=== PATIENT | male | born 1940 | race Caucasian/White ===

== ENCOUNTER 2017-11-26 11:08 | Outpatient (CLI) | payer MEDICARE, BC ==
[2017-11-26 18:17] LABS: BILIRUBIN,URINE NEGATIVE (NEGATIVE); GLUCOSE, URINE (UA) NEGATIVE (NEGATIVE); KETONES,URINE (UA) NEGATIVE (NEGATIVE); LEUKOCYTE ESTERASE, URINE NEGATIVE (NEGATIVE); NITRITE,URINE NEGATIVE (NEGATIVE); OCCULT BLOOD,URINE NEGATIVE (NEGATIVE); PROTEIN,URINE NEGATIVE (NEGATIVE); UROBILINOGEN,URINE 0.2 (NORMAL) E.U./dL (NORMAL)
[2017-11-26 18:23] LABS: CLARITY,URINE CLEAR (CLEAR)
== END 2017-11-26 11:09 | disposition home or self-care (01) ==
LOC: LAB.R 11:08
PROVIDERS: ATTEND Nurse Practitioner Family
DX: R30.0 Dysuria (principal)
CPT/HCPCS: 81001; 81003; 87086

== ENCOUNTER 2018-01-22 13:11 | Outpatient (CLI) | payer MEDICARE, BC ==
[2018-01-22 13:44] LABS: BILIRUBIN,URINE NEGATIVE (NEGATIVE); GLUCOSE, URINE (UA) NEGATIVE (NEGATIVE); KETONES,URINE (UA) TRACE mg/dL (NEGATIVE); LEUKOCYTE ESTERASE, URINE TRACE (NEGATIVE); NITRITE,URINE NEGATIVE (NEGATIVE); OCCULT BLOOD,URINE NEGATIVE (NEGATIVE); PROTEIN,URINE NEGATIVE (NEGATIVE); UROBILINOGEN,URINE 1 (NORMAL) E.U./dL (NORMAL)
[2018-01-22 13:53] LABS: CLARITY,URINE CLEAR (CLEAR)
[2018-01-22 13:54] LABS: BACTERIA,URINE Rare /HPF (None Seen); SQUAMOUS EPITHELIAL CELL,UR RARE Squamous (<= Few)
== END 2018-01-22 13:12 | disposition home or self-care (01) ==
LOC: LAB 13:11
PROVIDERS: ATTEND Urology
DX: R39.9 Unspecified symptoms and signs involving the genitourinary system (principal)
CPT/HCPCS: 81001; 87086

== ENCOUNTER 2018-07-22 14:25 | Observation (INO) | payer MEDICARE, BC ==
--- NOTE | 2018-07-22 14:41 | ED Physician Documentation ---
PD HPI SYNCOPE - Stated complaint Stated Complaint: NEAR SYNCOPE - Chief complaint Chief Complaint: Neuro - History obtained from History obtained from: Patient, Family - History of Present Illness Witnessed: Witnessed Timing - onset: Today Duration: Seconds Preceding symptoms: Vision changes, Light headed, Generalized weakness Associated symptoms: Incontinant of urine. No: Seizure, Headache, Vision changes Contributing factors: Exertion Injury occurred: None Similar symptoms before: Has not had sx before Recently seen: Not recently seen - Additional information Additional information: 78-year-old male with a history of advancing dementia was out with his partner today having lunch in [place] and he was in his usual state of health. He came out of the restaurant with his partner they were walking down the street when the patient suddenly dropped to his knees and became less responsive. His partner put him into the car to bring him up to the hospital he is responding but less than his usual. He did not have complete syncope he did not injure himself. He has some urinary incontinence and some troubles with his memory and his partner is administering his medications and fluids. His partner states that he has decreased his fluids slightly because of his urinary incontinence. Review of Systems Constitutional: denies: Fever Eyes: denies: Decreased vision Ears: denies: Ear pain Nose: denies: Congestion Throat: denies: Sore throat Cardiac: denies: Chest pain / pressure, Palpitations Respiratory: denies: Dyspnea, Cough GI: denies: Abdominal Pain, Nausea, Vomiting : reports: Incontinent. denies: Dysuria, Frequency Skin: denies: Rash Musculoskeletal: denies: Neck pain, Back pain, Extremity pain PD PAST MEDICAL HISTORY - Present Medications Home Medications: Ambulatory Orders Medication Instructions Recorded Confirmed Atorvastatin [Lipitor] 10 mg PO DAILY 07/22/18 07/22/18 Citalopram [CeleXA] 20 mg PO DAILY 07/22/18 07/22/18 Losartan [Cozaar] 50 mg PO DAILY 07/22/18 07/22/18 No Known Home Medications 07/22/18 07/22/18 - Allergies Allergies/Adverse Reactions: Allergies Allergy/AdvReac Type Severity Reaction Status Date / Time Sulfa (Sulfonamide Allergy Unknown Verified 07/22/18 14:37 Antibiotics) PD ED PE NORMAL - Vitals Vital signs reviewed: Yes (hypotensive ) - General General: No acute distress, Well developed/nourished, Other (blank stare clinching teeth and hands) - HEENT HEENT: Atraumatic, PERRL, EOMI, Other (cerumen impaction bilaterally ) - Neck Neck: Supple, no meningeal sign, No bony TTP - Cardiac Cardiac: RRR, No murmur - Respiratory Respiratory: No respiratory distress, Clear bilaterally - Abdomen Abdomen: Soft, Non tender - Back Back: No CVA TTP, No spinal TTP - Derm Derm: Normal color, Warm and dry, No rash - Extremities Extremities: No deformity, No edema - Neuro Neuro: rn nursery 2-12 intact, No motor deficit, No sensory deficit, Normal speech Eye Opening: Spontaneous Motor: Obeys Commands Verbal: Confused GCS Score: 14 - Psych Psych: Normal mood, Normal affect Results - Vitals Vitals: Vital Signs - 24 hr 07/22/18 07/22/18 07/22/18 14:30 14:58 15:33 Temperature 36.0 C L Heart Rate 61 66 74 Respiratory 19 16 21 Rate Blood Pressure 91/59 L 93/61 94/56 L O2 Saturation 100 100 100 Oxygen O2 Source Room air - EKG (time done) 1441 Rate: Rate (enter#) (63) Rhythm: NSR Intervals: RBBB Compare to prior EKG: Old EKG unavailable Computer interpretation: Agree with computer - Labs Labs: Laboratory Tests 07/22/18 07/22/18 07/22/18 14:35 14:35 14:35 WBC 6.2 RBC 4.27 L Hgb 12.8 L Hct 37.3 L MCV 87.3 MCH 29.9 MCHC 34.2 RDW 14.3 Plt Count 197 MPV 7.3 L Neut # (Auto) 3.3 Lymph # (Auto) 2.1 [place] # (Auto) 0.7 Eos # (Auto) 0.1 Baso # (Auto) 0.0 Absolute Nucleated RBC 0.00 Nucleated RBC % 0.1 Sodium 139 Potassium 3.7 Chloride 103 Carbon Dioxide 24 Anion Gap 12.0 BUN 25 H Creatinine 1.6 H Estimated GFR (MDRD) 42 L Glucose 124 H POC Whole Bld Glucose Lactic Acid Calcium 9.6 Total Bilirubin 0.8 AST 27 ALT 19 Alkaline Phosphatase 50 Troponin I < 0.04 B-Natriuretic Peptide Total Protein 6.9 Albumin 3.9 Globulin 3.0 Albumin/Globulin Ratio 1.3 Lipase 27 Urine Color Urine Clarity Urine pH Ur Specific [place] Urine Protein Urine Glucose (UA) Urine Ketones Urine Occult Blood Urine Nitrite Urine Bilirubin Urine Urobilinogen Ur Leukocyte Esterase Urine RBC Urine WBC Ur Squamous Epith Cells Urine Bacteria Urine Mucus Ur Microscopic Review Urine Culture Comments 07/22/18 07/22/18 07/22/18 14:35 14:35 14:35 WBC RBC Hgb Hct MCV MCH MCHC RDW Plt Count MPV Neut # (Auto) Lymph # (Auto) [place] # (Auto) Eos # (Auto) Baso # (Auto) Absolute Nucleated RBC Nucleated RBC % Sodium Potassium Chloride Carbon Dioxide Anion Gap BUN Creatinine Estimated GFR (MDRD) Glucose POC Whole Bld Glucose 111 H Lactic Acid 3.5 H* Calcium Total Bilirubin AST ALT Alkaline Phosphatase Troponin I B-Natriuretic Peptide 11 Total Protein Albumin Globulin Albumin/Globulin Ratio Lipase Urine Color Urine Clarity Urine pH Ur Specific [place] Urine Protein Urine Glucose (UA) Urine Ketones Urine Occult Blood Urine Nitrite Urine Bilirubin Urine Urobilinogen Ur Leukocyte Esterase Urine RBC Urine WBC Ur Squamous Epith Cells Urine Bacteria Urine Mucus Ur Microscopic Review Urine Culture Comments 07/22/18 14:55 WBC RBC Hgb Hct MCV MCH MCHC RDW Plt Count MPV Neut # (Auto) Lymph # (Auto) [place] # (Auto) Eos # (Auto) Baso # (Auto) Absolute Nucleated RBC Nucleated RBC % Sodium Potassium Chloride Carbon Dioxide Anion Gap BUN Creatinine Estimated GFR (MDRD) Glucose POC Whole Bld Glucose Lactic Acid Calcium Total Bilirubin AST ALT Alkaline Phosphatase Troponin I B-Natriuretic Peptide Total Protein Albumin Globulin Albumin/Globulin Ratio Lipase Urine Color BROWN Urine Clarity HAZY Urine pH 5.[address] [place] 1.025 Urine Protein TRACE Urine Glucose (UA) NEGATIVE Urine Ketones NEGATIVE Urine Occult Blood TRACE-INTA Urine Nitrite POSITIVE H Urine Bilirubin NEGATIVE Urine Urobilinogen 0.2 (NORMAL) Ur Leukocyte Esterase MODERATE H Urine RBC 0-5 Urine WBC >25 H Ur Squamous Epith Cells NONE SEEN Urine Bacteria Few Urine Mucus Few Strands Ur Microscopic Review INDICATED Urine Culture Comments INDICATED - Rads (name of study) CT head without Radiology: Prelim report reviewed (Impression: Generalized age-related cortical atrophic changes without evidence of acute intracranial abnormality.), EMP read indepedently, See rad report chest Radiology: Prelim report reviewed (Impression: Hypoinflation, otherwise unremarkable single view chest.), EMP read indepedently, See rad report Procedures - IVC sono (time) 1520 Bedside IVC sono: IVC measures (cm) (1.09), IVC collapsed c insp (cm) (complete), Dehydration (est 1-2 liters deficit.) PD MEDICAL DECISION MAKING - ED course Complexity details: reviewed results, re-evaluated patient, considered differential, d/w patient, d/w family ED course: 78-year-old male with some dementia has had a near syncope and collapse today without prior warning. Here in the emergency department he has volume depletion on interrogation of the inferior vena cava as well as acute kidney injury and urinary tract infection. He is lactate is 3.5. Saline and antibiotics are begun and he is prepared for admission to the hospital. Departure - Departure Disposition: ED Place in Observation Clinical Impression: Dehydration Altered mental status Qualifiers: Altered mental status type: transient alteration of awareness Qualified Code(s): R40.4 - Transient alteration of awareness Urinary tract infection Qualifiers: Urinary tract infection type: acute cystitis Hematuria presence: without hematuria Qualified Code(s): N30.00 - Acute cystitis without hematuria
[2018-07-22 14:50] LABS: BASOPHILS % (AUTO) 0.7 %; EOSINOPHILS # (AUTO) 0.1 10^3/uL (0.0-0.7); EOSINOPHILS % (AUTO) 1.4 %; HGB - HEMOGLOBIN 12.8 g/dL (14.0-18.0); LYMPHOCYTES # (AUTO) 2.1 10^3/uL (1.5-3.5); LYMPHOCYTES % (AUTO) 33.9 %; MEAN CORPUSCULAR HEMOGLOBIN 29.9 pg (27.0-31.0); MEAN CORPUSCULAR HGB CONC 34.2 g/dL (32.0-36.0); MEAN CORPUSCULAR VOLUME 87.3 fL (80.0-94.0); MEAN PLATELET VOLUME 7.3 fL (7.4-11.4); MONOCYTES # (AUTO) 0.7 10^3/uL (0.0-1.0); MONOCYTES % (AUTO) 11.1 %; NEUTROPHILS # (AUTO) 3.3 10^3/uL (1.5-6.6); NEUTROPHILS % (AUTO) 52.9 %; PLT - PLATELET COUNT 197 10^3/uL (130-450); RED BLOOD COUNT 4.27 10^6/uL (4.70-6.10); RED CELL DISTRIBUTION WIDTH 14.3 % (12.0-15.0); WHITE BLOOD COUNT 6.2 x10^3/uL (4.8-10.8)
[2018-07-22 15:00] LABS: ALBUMIN 3.9 g/dL (3.2-5.5); ALBUMIN/GLOBULIN RATIO 1.3 (1.0-2.2); BILIRUBIN,TOTAL 0.8 mg/dL (0.2-1.0); CALCIUM 9.6 mg/dL (8.5-10.3); CREATININE 1.6 mg/dL (0.6-1.2); TOTAL PROTEIN 6.9 g/dL (6.7-8.2)
[2018-07-22 15:04] LABS: BILIRUBIN,URINE NEGATIVE (NEGATIVE); GLUCOSE, URINE (UA) NEGATIVE (NEGATIVE); KETONES,URINE (UA) NEGATIVE (NEGATIVE); LEUKOCYTE ESTERASE, URINE MODERATE (NEGATIVE); NITRITE,URINE POSITIVE (NEGATIVE); OCCULT BLOOD,URINE TRACE-INTA (NEGATIVE); PH,URINE 5.5 PH (5.0-7.5); PROTEIN,URINE TRACE mg/dL (NEGATIVE); UROBILINOGEN,URINE 0.2 (NORMAL) E.U./dL (NORMAL)
[2018-07-22 15:07] LABS: CLARITY,URINE HAZY (CLEAR)
[2018-07-22 15:18] LABS: RBC,URINE 0-5 /HPF (0-5)
[2018-07-22 15:19] LABS: BACTERIA,URINE Few /HPF (None Seen); MUCUS,URINE Few Strands; SQUAMOUS EPITHELIAL CELL,UR NONE SEEN (<= Few)
[2018-07-22] MEDS ORDERED: SODIUM CHLORIDE 0.9% 1,000 ML IV ONE ×2 (15:38→17:17)
[2018-07-22] MEDS ORDERED: cefTRIAXone 1 GM in SODIUM CHLORIDE 0.9% MINIBAG 100 ML IV STA (15:38)
--- NOTE | 2018-07-22 15:41 | XRAY Report ---
Reason: chest pain Procedure Date: 07/22/2018 Accession Number: [id number] / [id number] Procedure: XR - Chest 1 View X-Ray CPT Code: 14211 FULL RESULT: EXAM: CHEST RADIOGRAPHY EXAM DATE: 07/22/2018 03:15 PM. CLINICAL HISTORY: Syncopal episode. Fall. Chest pain. COMPARISON: None. TECHNIQUE: 1 view. FINDINGS: Lungs/Pleura: Hypoinflated lungs. No focal opacities evident. No pleural effusion. No pneumothorax. Mediastinum: Within exam limitations, the cardiomediastinal contour is normal. Calcified aortic arch. Other: No fractures identified. IMPRESSION: Hypoinflation, otherwise unremarkable single view chest. RADIA
--- NOTE | 2018-07-22 15:43 | CT Report ---
Reason: syncope alter LOC Procedure Date: 07/22/2018 Accession Number: [id number] / [id number] Procedure: CT - HEAD WO CPT Code: FULL RESULT: EXAM: CT HEAD EXAM DATE: 07/22/2018 03:20 PM. CLINICAL HISTORY: Loss of consciousness. Fall. COMPARISON: None. TECHNIQUE: Multiaxial CT images were obtained from the foramen magnum to the vertex. Reformats: Sagittal and coronal. IV contrast: None. In accordance with CT protocol optimization, one or more of the following dose reduction techniques were utilized for this exam: automated exposure control, adjustment of mA and/or KV based on patient size, or use of iterative reconstructive technique. FINDINGS: Parenchyma: No intraparenchymal hemorrhage. No evidence of mass, midline shift, or CT findings of acute infarction. Nunez-white differentiation is distinct. Mild chronic microangiopathic white matter changes are evident. Extraaxial Spaces: Normal for age. No subdural or epidural collections identified. Ventricles: The ventricles and cortical sulci are prominent, consistent with age-related tissue loss. Sinuses and orbits: Opacified anterior left ethmoid air cell, otherwise the imaged paranasal sinuses, orbits, and mastoids show no significant abnormality. Bones: No evidence of fracture or calvarial defect. Other: None. IMPRESSION: Generalized age-related cortical atrophic changes without evidence of acute intracranial abnormality. RADIA
[2018-07-22] MEDS ORDERED: ONDANSETRON ODT 4 MG TABLET TL PRN (16:23)
[2018-07-22] MEDS ORDERED: SODIUM CHLORIDE FLUSH 0.9% 10 ML SYRINGE IVP PRN (16:23)
--- NOTE | 2018-07-22 16:39 | HISTORY & PHYSICAL EXAMINATION ---
Chief Complaint - Chief Complaint Chief Complaint: Sudden collapse with associated weakness History of Present Illness - Admitted From Admitted From:: ED - History Obtained From Records Reviewed: yes History obtained from: ED staff, patient is poor historian Exam Limitations: Yes - History of Present Illness HPI Comment/Other: 78-year-old male with a history of advancing dementia, Hypertension, hyperlipidemia, was out with his partner today having lunch in [place] and he was in his usual state of health. He came out of the restaurant with his partner they were walking down the street when the patient suddenly dropped to his knees and became less responsive. His partner put him into the car to bring him up to the hospital he is responding but less than his usual. He did not have complete syncope he did not injure himself. He has some urinary incontinence and some troubles with his memory and his partner is administering his medications and fluids. His partner states that he has decreased his fluids slightly because of his urinary incontinence. Patient's home medications consist of Celexa, losartan, atorvastatin, Aricept and clonazepam. Per patient's spouse patient was diagnosed with unspecified dementia approximately 10 years ago does not know if it is Alzheimer's dementia. However he does state that patient has had multiple falls in the past and is having intention tremors with some uncontrollable movements that he has observed and has labeled this as "anxiety" with constant twitching. Patient's partner attributes this to possible infections or when he is having an anxiety attack for which apparently he takes clonazepam and Celexa to alleviate this. Upon further examination patient is still confused however unclear of baseline dementia, CT of the head shows no acute mass-effects, ischemic insults or intracranial abnormalities, chest x-ray was unremarkable, electrolytes unremarkable, however creatinine is 1.6 unknown baseline, first set of troponin unremarkable with a BNP of 11, LFTs within normal limits, UA showed more than 25 WBCs per high-power field along with positive leukocyte Estrace/nitrate, EKG showed a right bundle branch block with a ventricular rate of 63 bpm with no pr ior old EKG to compare with. Patient's blood pressure was hypotensive with 94/56, afebrile, heart rate of 74 bpm, 100% O2 saturation room air. Patient to be admitted for further evaluation management treatment Meds/Allgy - Home Medications Home Medications: Ambulatory Orders Medication Instructions Recorded Confirmed Donepezil HCl [Aricept] 10 mg PO DAILY 05/02/19 05/02/19 Losartan [Cozaar] 25 mg PO DAILY 07/22/18 07/22/18 clonazePAM [KlonoPIN] 0.25 - 0.5 mg PO Q8H PRN 07/22/18 07/22/18 - Allergies Allergies/Adverse Reactions: Allergies Allergy/AdvReac Type Severity Reaction Status Date / Time Sulfa (Sulfonamide Allergy Unknown Verified 07/22/18 14:37 Antibiotics) Review of Systems - All Other Systems All Other Systems: reports: Reviewed and negative Prior Level of Functionality: Patient's prior functional capacity and status was with home ADLs that were performed at home Exam - Vital Signs Vital Signs: Vital Signs x48h Temp Pulse Resp BP Pulse Ox 07/22/18 15:33 74 21 94/56 L 100 07/22/18 14:58 66 16 93/61 100 07/22/18 14:30 36.0 C L 61 19 91/59 L 100 Sepsis Event Note (H) - Evaluation Possible source of Sepsis: positive: Genitourinary - Sepsis Criteria Sepsis Criteria: DESIGN CONSULTANT: altered consciousness (unrelated to primary neuro pathology), Metabolic: lactate > 2 mmol/L Conclusion/Plan - Problem List (1) Syncope and collapse Conclusion/Plan: Multifactorial etiology however strong component of possible underlying Parkinson's disease with autonomic dysfunction as patient has had dementia for approximately 10 years. Patient also on Aricept clonazepam Celexa losartan which may potentiate drug-induced hypotension/orthostatic hypotension. Will obtain orthostats, IV fluid resuscitation to continue, avoid sedative agents. ECG shows a RBBB but no suggest cardiac etiology, no seizure, post-ictal or loss of postural tone seen or observed to mandate MRI or EEG study. (2) Encephalopathy acute Conclusion/Plan: May be secondary to UTI exacerbating patient's underlying Parkinson's dementia. Will obtain blood cultures, urine cultures, and treat underlying etiologies. Most likely patient has undiagnosed Parkinson's disease with dementia and exacerbation with UTI observed. Obtain TSH, magnesium, lactic acid trending. No evidence of alcohol abuse or other metabolic causes to contribute to the acute encephalopathy. (3) Urinary tract infection Conclusion/Plan: Present on admission. UTI seen on UA, urine cultures to follow, unclear if UTI is associated with patient's acute encephalopathy and a loss of endothelial tone which can be seen in early sepsis depending on the species of organism. Patient to continue with IV Rocephin to cover empirically. Urine culture is to follow for the identification and sensitivities. Qualifiers: Urinary tract infection type: acute cystitis Hematuria presence: without hematuria Qualified Code(s): N30.00 - Acute cystitis without hematuria (4) Dementia Conclusion/Plan: Patient has had undiagnosed Parkinson's disease with associated dementia. Has had this for approximately 10 years now and was only on Aricept and Namenda in the past. Patient partner states that patient takes clonazepam and Celexa for his anxiety or uncontrolled movements that he attributes to this however I explained that this may not be anxiety and uncontrollable movements are due to his dystonias, akathisia's, and intention tremors that are related to his advanced Parkinson's disease/dementia. Will attempt to place on Low-dose Sinemet to start at 10/100 mg to improve movement disorder, Gait and balance as patient has had history of multiple falls in the past. Qualifiers: Dementia type: Parkinson's disease Dementia behavioral disturbance: without behavioral disturbance Qualified Code(s): G20 - Parkinson's disease; F02.80 - Dementia in other diseases classified elsewhere without behavioral disturbance (5) Lactic acidosis Conclusion/Plan: Patient likely has underlying UTI with a possibility that this was present on admission with the fact that he was hypotensive although I do not know if this is autonomic dysfunction versus true early sepsis with associated lactic acido sis. Blood cultures x2 were drawn as well as urine cultures to follow. Lactic acid trending every 6 hours until normalizing to continue (6) Acute renal insufficiency Conclusion/Plan: Creatinine upon presentation was 1.6 there is no prior baseline however patient was on losartan in the past and will hold this due to SHANON. Continue to perfuse kidneys, avoid nephrotoxic agents, And correct electrolyte disturbances. (7) Hyperlipidemia Conclusion/Plan: Will restart statin Qualifiers: Hyperlipidemia type: mixed hyperlipidemia Qualified Code(s): E78.2 - Mixed hyperlipidemia (8) Advanced care planning/counseling discussion Conclusion/Plan: Plan of care along with discussion of medical conditions, symptom management and support, and trajectory of illness were discussed with patient and partner. - Lab Results Fish Bones: 07/22/18 14:35 07/22/18 14:35 - Diagnostic Imaging Results Diagnostic Imaging Results: positive: Final report reviewed - EKG Results EKG Interpreted Independently: Yes EKG Comparison: Old EKG unavailable Core Measures - Anticipated LOS I expect patient to be DC'd or transferred within 96 hours.: Yes - DVT/VTE - Prophylaxis VTE/DVT Device ordered at admit?: Yes VTE/DVT Prophylaxis med ordered at admit?: Yes - Stroke - Rehab Assessment Rehab services assessment to be ordered?: No - AMI - Statin at Admit Aspirin Prescribed on Admit: No Not Ordered - Medical Reason: Not indicated
[2018-07-22 17:21] LABS: MUDS CUTOFF CONCENTRATIONS CUTOFF CONC BELOW:
[2018-07-22 17:46] LABS: AMPHETAMINE SCREEN,URINE NEGATIVE (NEGATIVE); BENZODIAZEPINES SCREEN, URINE NEGATIVE (NEGATIVE); COCAINE SCREEN URINE NEGATIVE (NEGATIVE); METHADONE SCREEN, URINE NEGATIVE (NEGATIVE); METHAMPHETAMINES SCREEN, URINE NEGATIVE (NEGATIVE); OPIATE SCREEN, URINE NEGATIVE (NEGATIVE); OXYCODONE SCREEN, URINE NEGATIVE (NEGATIVE); PROPOXYPHENE SCREEN, URINE NEGATIVE (NEGATIVE); TRICYCLIC ANTIDEPRESSANT,URINE NEGATIVE (NEGATIVE)
[2018-07-22] MEDS: SODIUM CHLORIDE 0.9% 1,000 ML IV SCH (18:13)
[2018-07-22] MEDS: SODIUM CHLORIDE FLUSH 0.9% 10 ML SYRINGE IVP SCH (18:14)
[2018-07-22] MEDS: CARBIDOPA/LEVODOPA 10 MG/100 MG TABLET PO SCH ×2 (18:21→20:58)
[2018-07-22] MEDS: HEPARIN 5,000 UNIT/ML VIAL SUBQ SCH (20:58)
[2018-07-22] MEDS: FAMOTIDINE 20 MG TABLET PO SCH (20:58)
[2018-07-22] MEDS ORDERED: MIN OIL/DIMETHICON/COCONUT OIL 92 GM TUBE TOP PRN (21:27)
[2018-07-23] MEDS: ACETAMINOPHEN 325 MG TABLET PO PRN ×2 (00:21→10:20)
[2018-07-23] MEDS: SODIUM CHLORIDE 0.9% 1,000 ML IV SCH ×2 (01:51→09:51)
[2018-07-23] MEDS: SODIUM CHLORIDE FLUSH 0.9% 10 ML SYRINGE IVP SCH ×2 (03:24→10:11)
[2018-07-23 05:35] LABS: BASOPHILS % (AUTO) 0.4 %; EOSINOPHILS % (AUTO) 0.6 %; HGB - HEMOGLOBIN 11.3 g/dL (14.0-18.0); LYMPHOCYTES # (AUTO) 1.4 10^3/uL (1.5-3.5); LYMPHOCYTES % (AUTO) 19.3 %; MEAN CORPUSCULAR HEMOGLOBIN 30.3 pg (27.0-31.0); MEAN CORPUSCULAR HGB CONC 34.4 g/dL (32.0-36.0); MEAN PLATELET VOLUME 7.4 fL (7.4-11.4); MONOCYTES # (AUTO) 0.5 10^3/uL (0.0-1.0); MONOCYTES % (AUTO) 6.8 %; NEUTROPHILS # (AUTO) 5.3 10^3/uL (1.5-6.6); NEUTROPHILS % (AUTO) 72.9 %; PLT - PLATELET COUNT 142 10^3/uL (130-450); RED BLOOD COUNT 3.72 10^6/uL (4.70-6.10); RED CELL DISTRIBUTION WIDTH 14.5 % (12.0-15.0); WHITE BLOOD COUNT 7.3 x10^3/uL (4.8-10.8)
[2018-07-23 05:49] LABS: ALBUMIN 3.1 g/dL (3.2-5.5); CALCIUM 8.6 mg/dL (8.5-10.3); CREATININE 0.8 mg/dL (0.6-1.2); PHOSPHORUS 3.5 mg/dL (2.5-4.6)
[2018-07-23] MEDS ORDERED: ATORVASTATIN 10 MG TABLET PO SCH (09:00)
[2018-07-23] MEDS ORDERED: POLYETHYLENE GLYCOL 3350 17 GM PACKET PO SCH (09:00)
[2018-07-23] MEDS ORDERED: cefTRIAXone 1 GM in SODIUM CHLORIDE 0.9% MINIBAG 100 ML IV SCH (09:00)
--- NOTE | 2018-07-23 09:24 | DISCHARGE SUMMARY ---
Discharge Summary Admit Date: 07/22/18 Discharge Date: 07/23/18 Discharging Provider: Dr. Hood Primary Care Provider: Debra Jay Code Status: Attempt Resuscitation Condition at Discharge: Good Discharge Disposition: 01 Home, Self Care - DIAGNOSES Admission Diagnoses: (1) Syncope and collapse (2) Encephalopathy acute (3) Urinary tract infection (4) Dementia (5) Lactic acidosis (6) Acute renal insufficiency (7) Hyperlipidemia (8) Advanced care planning/counseling discussion Discharge Diagnoses with Status of Each Condition: (1) Syncope and collapse, Resolved (2) Encephalopathy acute, Resolved (3) Urinary tract infection With associated dysuria, Improved stable (4) New diagnosis of Parkinson's disease with possible underlying Dementia, Stable (5) Lactic acidosis, Resolved (6) Acute renal insufficiency, Resolved (7) Hyperlipidemia, stable (8) hypertension, stable - HPI History of Present Illness: 78-year-old male with a history of advancing dementia, Hypertension, hyperlipidemia, was out with his partner today having lunch in [place] and he was in his usual state of health. He came out of the restaurant with his partner they were walking down the street when the patient suddenly dropped to his knees and became less responsive. His partner put him into the car to bring him up to the hospital he is responding but less than his usual. He did not have complete syncope he did not injure himself. He has some urinary incontinence and some troubles with his memory and his partner is administering his medications and fluids. His partner states that he has decreased his fluids slightly because of his urinary incontinence. Patient's home medications consist of Celexa, losartan, atorvastatin, Aricept and clonazepam. Per patient's spouse patient was diagnosed with unspecified dementia approximately 10 years ago does not know if it is Alzheimer's dementia. However he does state that patient has had multiple falls in the past and is having intention tremors with some uncontrollable movements that he has observed and has labeled this as "anxiety" with constant twitching. Patient's partner attributes this to possible infections or when he is having an anxiety attack for which apparently he takes clonazepam and Celexa to alleviate this. Upon further examination patient is still confused however unclear of baseline dementia, CT of the head shows no acute mass-effects, ischemic insults or intracranial abnormalities, chest x-ray was unremarkable, electrolytes unremarkable, however creatinine is 1.6 unknown baseline, first set of troponin unremarkable with a BNP of 11, LFTs within normal limits, UA showed more than 25 WBCs per high-power field along with positive leukocyte Estrace/nitrate, EKG showed a right bundle branch block with a ventricular rate of 63 bpm with no prior old EKG to compare with. Patient's blood pressure was hypotensive with 94/56, afebrile, heart rate of 74 bpm, 100% O2 saturation room air. Patient to be admitted for further evaluation management treatment - HOSPITAL COURSE Hospital Course: Patient was admitted for UTI which was attributable to his encephalopathy superimposed to his advanced dementia which by history appears to be Alzheimer's type however Parkinson's type dementia has not been excluded and in fact patient did come in with cogwheel rigidity, trapezius, frequent "falls, gait disturbance, as well as intention and resting tremors. This unfortunately has not been diagnosed in patient's past. Patient has been off the Aricept however was on Celexa, clonazepam, losartan, atorvastatin. Patient had been instructed to decrease his losartan from 100 mg to 50 mg however 100 mg had been continued as per spouse's account. Patient had a syncope and collapse that was witnessed. There was lactic acidosis seen initially along with possible early sepsis however urine culture showed no growth upon discharge, and blood cultures were pending and unclear at this point if this was a contributing factor to his lobe blood pressures however it may have been due to patient having been on losartan and being dehydrated. Patient had no other abnormalities and no cardiac underlying causes. Echocardiogram revealed an Ejection fraction was 60 to 65% with grade 1 diastolic dysfunction with no overt valvular heart disease. Orthostats were ordered as well. Physical therapy to assess due to patient's history of falls. Physical therapy assess patient and did see signs and symptoms of Parkinson's disease. Recommendations for outpatient PT were given.Patient was started on IV Rocephin empirically for his UTI. Patient was transitioned over to p.o. Keflex to continue as an outpatient. Lactic acid was 1.7 upon discharge with hemodynamic stability, afebrile with blood pressure 136/66. Neuroimaging studies were unremarkable on admission as well as chest x- ray. Patient was managed medically and with IV fluids and responded well to medical management. Patient had improved on his weakness and gait as per physical therapy. Patient to be discharged with Sinemet with PCP to follow and make referral to neurology to continue with titration of Sinemet. Patient has been given instructions on medical conditions with proper management. - ALLERGIES Allergies/Adverse Reactions: Allergies Allergy/AdvReac Type Severity Reaction Status Date / Time Sulfa (Sulfonamide Allergy Unknown Verified 07/22/18 14:37 Antibiotics) - MEDICATIONS Home Medications: Ambulatory Orders Medication Instructions Recorded Confirmed Atorvastatin Calcium 20 mg PO DAILY 07/22/18 07/23/18 Citalopram Hydrobromide 20 mg PO DAILY 07/22/18 07/23/18 [Citalopram HBr] Cyanocobalamin (Vitamin B-12) 1,000 mcg PO DAILY 07/22/18 07/23/18 [Vitamin B-12] clonazePAM [KlonoPIN] 0.25 - 0.5 mg PO Q8H PRN 07/22/18 07/22/18 Carbidopa/Levodopa 1 each PO QID #90 tablet 07/23/18 [Carbidopa-Levodopa 25-100 Tab] Cephalexin [Keflex] 1,000 mg PO BID 7 Days #28 capsule 07/23/18 Phenazopyridine [Pyridium] 100 mg PO TID 3 Days #9 tablet 07/23/18 - PHYSICAL EXAM AT DISCHARGE General Appearance: positive: No acute distress, Alert, Other (Baseline dementia) Eyes Bilateral: positive: Normal inspection, PERRL, EOMI ENT: positive: ENT inspection nml, Pharynx nml, No signs of dehydration Neck: positive: Nml inspection, Thyroid nml, No JVD, Trachea midline. negative: Thyromegaly Respiratory: positive: Chest non-tender, No respiratory distress, Breath sounds nml Cardiovascular: positive: Regular rate & rhythm, No murmur, No gallop Peripheral Pulses: positive: 2+ Abdomen: positive: Non-tender, No organomegaly, Nml bowel sounds, No distention. negative: Tenderness Back: positive: Nml inspection Skin: positive: Color nml, No rash Extremities: positive: Full ROM, Nml appearance. negative: Calf tenderness, Joint swelling Neurologic/Psychiatric: positive: Depressed mood/affect (Patient has neurocognitive deficits that are apparent.), Other (Patient with cogwheel rigidity bilaterally, resting and intention tremors noted.). negative: Sensory loss, Facial droop, Slurred/abnml speech - LABS Result Diagrams: 07/23/18 05:25 07/23/18 05:25 - DIAGNOSTIC IMAGING Diagnostic Imaging Results: Final report reviewed - SEPSIS Possible source of Sepsis: Genitourinary Sepsis Criteria: HIGH SCHOOL DIRECTOR: altered consciousness (unrelated to primary neuro pathology) - FOLLOW UP Follow Up: To follow-up with PCP in 1 to 2 weeks. Patient needs to have a neurology follow -up in 2 to 3 weeks for his Parkinson's disease. - TIME SPENT Time Spent in Discharge (Minutes): 35
[2018-07-23] MEDS: CARBIDOPA/LEVODOPA 10 MG/100 MG TABLET PO SCH ×2 (09:50→13:30)
[2018-07-23] MEDS: FAMOTIDINE 20 MG TABLET PO SCH (09:50)
[2018-07-23] MEDS: PHENAZOPYRIDINE 100 MG TABLET PO SCH ×2 (09:50→13:30)
[2018-07-23] MEDS: HEPARIN 5,000 UNIT/ML VIAL SUBQ SCH (09:50)
--- NOTE | 2018-07-23 12:29 | Discharge Plan ---
Discharge Plan Disposition: Home, Self Care Condition: Good Prescriptions: Carbidopa/Levodopa [Carbidopa-Levodopa 25-100 Tab] 1 each PO QID #90 tablet Cephalexin [Keflex] 1,000 mg PO BID 7 Days #28 capsule Phenazopyridine [Pyridium] 100 mg PO TID 3 Days #9 tablet Diet: Regular Activity Restrictions: Activity as Tolerated Shower Restrictions: No Driving Restrictions: Yes Weight Bearing: Full Weight Instruction Topics: Carbidopa Levodopa tablets, Parkinson Disease, Parkinson Disease Meds, Parkinson Disease Plan Future, Parkinson Disease [place] Emotions, UTI Additional Instructions or Follow Up instructions: You were admitted for a urinary tract infection which may have been related to your collapse and low blood pressures at the same time as it pertains to your blood pressure medications of Cozaar. You will be instructed to hold off on Cozaar until your urinary tract infection has improved or resolved. You will continue with oral antibiotics for at least 7 more days. You have been instructed to continue your other home medications. You had an echocardiogram to visualize a 4 chambers of your heart which were essentially normal. You have been instructed to increase her oral intake and fluids. You have also been instructed to ambulate with precaution as you have had a history of falls as it pertains to her Parkinson's disease and movement disorder. Please follow-up with your regular primary care provider in 1 to 2 weeks. Would also be of help if a neurologist or to manage your new medication for your Parkinson's disease. You have been instructed on bowel and bladder hygiene. You may benefit from outpatient physical therapy to improve your range of motion, gait, strength and balance as indicated by our physical therapist who saw you while hospitalized. Follow-Up Care: Outpatient Rehab - OT No Smoking: If you smoke, Please STOP! Call for help. Follow-up with: Debra Jay ARNP [Primary Care Provider] - 1 Week (Follow-up with PCP in 1 or 2 weeks.)
[2018-07-23 12:43] VITALS: BP 148/59
[2018-07-24] MEDS ORDERED: NON FORMULARY MED (Atorvastatin Calcium [Atorvastatin Calcium] 20 MG) PO SCH (09:00)
[2018-07-24] MEDS ORDERED: CYANOCOBALAMIN 500 MCG TABLET PO SCH (09:00)
== END 2018-07-23 14:02 | disposition home or self-care (01) ==
LOC: ED 14:25 → MS2 16:24
PROVIDERS: ADMIT Family Medicine; ATTEND Family Medicine
DX: R55 Syncope and collapse (principal); G93.40 Encephalopathy, unspecified; N30.00 Acute cystitis without hematuria; G20 Parkinson's disease; E87.2 Acidosis; N17.9 Acute kidney failure, unspecified; E86.0 Dehydration; F03.90 Unspecified dementia, unspecified severity, without behavioral disturbance, psychotic disturbance, mood disturbance, and anxiety; F32.9 Major depressive disorder, single episode, unspecified; E78.5 Hyperlipidemia, unspecified; I10 Essential (primary) hypertension; R32 Unspecified urinary incontinence; I45.10 Unspecified right bundle-branch block; Z91.81 History of falling
CPT/HCPCS: 36415; 51701; 70450; 71045; 80069; 81001; 83605; 83690; 83735; 83880; 84484; 85025; 87040; 87086; 93005; 93306; 96361; 96365; 96366; 96372; 97161; 99283; 99284; A6250; A9270; G0378; 80053; 80306; 81003; 84443

== ENCOUNTER 2018-08-27 12:54 | Outpatient (CLI) | payer MEDICARE, BC | END 2018-08-27 12:55 | disposition critical access hospital (66) | LOC: EMS 12:54 | PROVIDERS: ATTEND Surgery | DX: R39.89 Other symptoms and signs involving the genitourinary system (principal); R53.83 Other fatigue; S30.810A Abrasion of lower back and pelvis, initial encounter; W06.XXXA Fall from bed, initial encounter; Y92.003 Bedroom of unspecified non-institutional (private) residence as the place of occurrence of the external cause | CPT/HCPCS: A0425; A0429 ==

== ENCOUNTER 2018-08-27 13:36 | Emergency (ER) | payer MEDICARE, BC ==
[2018-08-27] MEDS ORDERED: SODIUM CHLORIDE 0.9% 1,000 ML IV ONE (13:58)
--- NOTE | 2018-08-27 14:00 | ED Physician Documentation ---
PD HPI BACK INJURY - Stated complaint Stated Complaint: UTI - History obtained from History obtained from: Family (partner/caregiver) - History of Present Illness Type of injury: Fall (78-year-old gentleman with dementia and Parkinson's. He l juani at home with his partner who is his primary caregiver. Over the last 48 hours he has decompensated and unable to walk unassisted, he is fallen several times with injuries to both elbows and his low back. This is similar to an episode he had at the beginning of July with diagnoses of lactic acidosis and UTI. At baseline he walks without implements, he sometimes requires help eating and is incontinent.) Review of Systems Unable to obtain: Dementia PD PAST MEDICAL HISTORY - Past Medical History Cardiovascular: Hypertension, High cholesterol Respiratory: None Neuro: Dementia Endocrine/Autoimmune: None GI: None : Incontinence Psych: Depression Musculoskeletal: None Derm: None - Past Surgical History Past Surgical History: Yes Ortho: Other - Present Medications Home Medications: Ambulatory Orders Medication Instructions Recorded Confirmed Atorvastatin Calcium 20 mg PO DAILY 07/22/18 07/23/18 Citalopram Hydrobromide 20 mg PO DAILY 07/22/18 07/23/18 [Citalopram HBr] Cyanocobalamin (Vitamin B-12) 1,000 mcg PO DAILY 07/22/18 07/23/18 [Vitamin B-12] clonazePAM [KlonoPIN] 0.25 - 0.5 mg PO Q8H PRN 07/22/18 07/22/18 Carbidopa/Levodopa 1 each PO QID #90 tablet 07/23/18 [Carbidopa-Levodopa 25-100 Tab] Hydrocodone/Acetaminophen 1 - 2 each PO Q6H PRN #30 tablet 08/27/18 [Hydrocodon-Acetaminophen 5-325] - Allergies Allergies/Adverse Reactions: Allergies Allergy/AdvReac Type Severity Reaction Status Date / Time Sulfa (Sulfonamide Allergy Unknown Verified 08/27/18 13:48 Antibiotics) - Social History Does the pt smoke?: Yes Smoking Status: Former smoker Does the pt drink ETOH?: No Does the pt have substance abuse?: No - Immunizations Immunizations are current?: Yes PD ED PE NORMAL - Vitals Vital signs reviewed: Yes - General General: Other (He is alert, he will say his name but is otherwise pretty much nonverbal. He follows simple commands.) - HEENT HEENT: PERRL, EOMI - Neck Neck: Supple, no meningeal sign, No bony TTP - Cardiac Cardiac: RRR, No murmur - Respiratory Respiratory: No respiratory distress, Clear bilaterally - Abdomen Abdomen: Normal bowel sounds, Soft, Non tender - Back Back: No CVA TTP, No spinal TTP - Extremities Extremities: No edema, No calf tenderness / cord, Other (Bruising to both elbows with tenderness left greater than right, limited range of motion and some rigidity more consistent with Parkinson's.) - Neuro Eye Opening: Spontaneous Motor: Obeys Commands Verbal: Confused GCS Score: 14 Results - Vitals Vitals: Vital Signs - 24 hr 08/27/18 08/27/18 13:42 15:09 Temperature 36.6 C Heart Rate 91 94 Respiratory 20 17 Rate Blood Pressure 143/125 H 117/105 H O2 Saturation 100 94 Oxygen O2 Source Room air - Labs Labs: Laboratory Tests 08/27/18 08/27/18 08/27/18 14:10 14:30 14:30 WBC 8.0 RBC 4.29 L Hgb 12.9 L Hct 38.1 L MCV 88.6 MCH 30.1 MCHC 33.9 RDW 14.6 Plt Count 188 MPV 7.2 L Neut # (Auto) 6.9 H Lymph # (Auto) 0.5 L Towns # (Auto) 0.6 Eos # (Auto) 0.0 Baso # (Auto) 0.0 Absolute Nucleated RBC 0.00 Nucleated RBC % 0.0 Sodium 141 Potassium 3.7 Chloride 104 Carbon Dioxide 24 Anion Gap 13.0 BUN 22 H Creatinine 0.8 Estimated GFR (MDRD) 94 Glucose 116 H Lactic Acid Calcium 9.2 Total Bilirubin 1.7 H AST 28 ALT < 10 L Alkaline Phosphatase 44 Total Protein 7.2 Albumin 3.9 Globulin 3.3 Albumin/Globulin Ratio 1.2 Lipase 21 L Urine Color DARK YELLOW Urine Clarity HAZY Urine pH 5.0 Ur Specific [place] >=1.030 H Urine Protein 30 H Urine Glucose (UA) NEGATIVE Urine Ketones 15 H Urine Occult Blood SMALL H Urine Nitrite NEGATIVE Urine Bilirubin NEGATIVE Urine Urobilinogen 0.2 (NORMAL) Ur Leukocyte Esterase NEGATIVE Urine RBC 6-10 H Urine WBC 0-3 Ur Squamous Epith Cells NONE SEEN Urine Bacteria None Seen Urine Mucus Marked Strands Ur Microscopic Review INDICATED Urine Culture Comments NOT INDICATED 08/27/18 14:30 WBC RBC Hgb Hct MCV MCH MCHC RDW Plt Count MPV Neut # (Auto) Lymph # (Auto) Towns # (Auto) Eos # (Auto) Baso # (Auto) Absolute Nucleated RBC Nucleated RBC % Sodium Potassium Chloride Carbon Dioxide Anion Gap BUN Creatinine Estimated GFR (MDRD) Glucose Lactic Acid 1.2 Calcium Total Bilirubin AST ALT Alkaline Phosphatase Total Protein Albumin Globulin Albumin/Globulin Ratio Lipase Urine Color Urine Clarity Urine pH Ur Specific [place] Urine Protein Urine Glucose (UA) Urine Ketones Urine Occult Blood Urine Nitrite Urine Bilirubin Urine Urobilinogen Ur Leukocyte Esterase Urine RBC Urine WBC Ur Squamous Epith Cells Urine Bacteria Urine Mucus Ur Microscopic Review Urine Culture Comments - Rads (name of study) B elbow Radiology: EMP read contemporaneously (NAD) L spine XR Radiology: EMP read contemporaneously (? mild comp frx) PD MEDICAL DECISION MAKING - ED course ED course: 78-year-old gentleman with Parkinson's and dementia presents with multiple falls over the last few days. His partner is worried about a UTI which is not evident. He does have modest dehydration which was treated with 2 L of crystalloid. He is a potential L3 compression fracture on his x-ray. He was much more mobile after the administration of hydrocodone. Hospital observation was offered but the partner wanted to take him home. Departure - Departure Disposition: 01 Home, Self Care Clinical Impression: Dehydration Dementia Qualifiers: Dementia type: unspecified type Dementia behavioral disturbance: without behavioral disturbance Qualified Code(s): F03.90 - Unspecified dementia without behavioral disturbance Compression fracture of L3 vertebra Qualifiers: Encounter type: initial encounter Qualified Code(s): S32.030A - Wedge compression fracture of third lumbar vertebra, initial encounter for closed fracture Condition: Good Record reviewed to determine appropriate education?: Yes Instructions: ED Fx Comp Vertebral, ED Dementia Caregiver Support Prescriptions: Hydrocodone/Acetaminophen [Hydrocodon-Acetaminophen 5-325] 1 - 2 each PO Q6H PRN #30 tablet PRN Reason: pain Comments: Call your doctor to arrange a follow-up appointment, make the next available appointment. In the interim, return anytime if worse or if new symptoms develop. Do not drink or drive while taking narcotic pain medication. Note that many narcotic pain relievers also contain Tylenol/acetaminophen. Please ensure that your total dose of acetaminophen from all sources does not exceed 3 g (3000 mg) per day. You may get constipated while on this medication. Take a stool softener such as Colace twice a day while you are on it. Also add an [id number] laxative such as senna or MiraLAX on any day that you do not have a bowel movement. If you received a narcotic pain medication or sedative while in the emergency department, do not drive for the next 24 hours.
[2018-08-27 14:31] LABS: GLUCOSE, URINE (UA) NEGATIVE (NEGATIVE); KETONES,URINE (UA) 15 mg/dL (NEGATIVE); LEUKOCYTE ESTERASE, URINE NEGATIVE (NEGATIVE); NITRITE,URINE NEGATIVE (NEGATIVE); OCCULT BLOOD,URINE SMALL (NEGATIVE); PROTEIN,URINE 30 mg/dL (NEGATIVE); UROBILINOGEN,URINE 0.2 (NORMAL) E.U./dL (NORMAL)
[2018-08-27 14:41] LABS: BASOPHILS % (AUTO) 0.4 %; EOSINOPHILS % (AUTO) 0.2 %; HGB - HEMOGLOBIN 12.9 g/dL (14.0-18.0); LYMPHOCYTES # (AUTO) 0.5 10^3/uL (1.5-3.5); LYMPHOCYTES % (AUTO) 6.5 %; MEAN CORPUSCULAR HEMOGLOBIN 30.1 pg (27.0-31.0); MEAN CORPUSCULAR HGB CONC 33.9 g/dL (32.0-36.0); MEAN CORPUSCULAR VOLUME 88.6 fL (80.0-94.0); MEAN PLATELET VOLUME 7.2 fL (7.4-11.4); MONOCYTES # (AUTO) 0.6 10^3/uL (0.0-1.0); MONOCYTES % (AUTO) 7.4 %; NEUTROPHILS # (AUTO) 6.9 10^3/uL (1.5-6.6); NEUTROPHILS % (AUTO) 85.5 %; PLT - PLATELET COUNT 188 10^3/uL (130-450); RED BLOOD COUNT 4.29 10^6/uL (4.70-6.10); RED CELL DISTRIBUTION WIDTH 14.6 % (12.0-15.0)
[2018-08-27 14:49] LABS: BILIRUBIN,URINE NEGATIVE (NEGATIVE); CLARITY,URINE HAZY (CLEAR); ICTOTEST,URINE NEGATIVE
[2018-08-27 14:53] LABS: ALBUMIN 3.9 g/dL (3.2-5.5); ALBUMIN/GLOBULIN RATIO 1.2 (1.0-2.2); ALKALINE PHOSPHATASE 44 IU/L (42-121); ALT ALANINE AMINOTRANSFERASE < 10 IU/L (10-60); AST ASPARTATE AMINOTRANSFERASE 28 IU/L (10-42); BILIRUBIN,TOTAL 1.7 mg/dL (0.2-1.0); BUN - BLOOD UREA NITROGEN 22 mg/dL (6-20); CALCIUM 9.2 mg/dL (8.5-10.3); CARBON DIOXIDE - CO2 24 mmol/L (21-32); CHLORIDE 104 mmol/L (101-111); CREATININE 0.8 mg/dL (0.6-1.2); GFR - MDRD 94 (>89); GLUCOSE 116 mg/dL (70-100); LIPASE 21 U/L (22-51); SODIUM 141 mmol/L (135-145); TOTAL PROTEIN 7.2 g/dL (6.7-8.2)
[2018-08-27 14:55] LABS: BACTERIA,URINE None Seen /HPF (None Seen); MUCUS,URINE Marked Strands; SQUAMOUS EPITHELIAL CELL,UR NONE SEEN (<= Few)
[2018-08-27] MEDS ORDERED: LACTATED RINGERS 1,000 ML IV STA (14:57)
[2018-08-27] MEDS ORDERED: CARBIDOPA/LEVODOPA 25 MG/100 MG TABLET PO STA (15:15)
--- NOTE | 2018-08-27 15:18 | XRAY Report ---
Reason: falls, elbow inj and back inj Procedure Date: 08/27/2018 Accession Number: [id number] / [id number] Procedure: XR - Lumbar Spine 2 View CPT Code: FULL RESULT: EXAM: LUMBOSACRAL SPINE RADIOGRAPHY EXAM DATE: 08/27/2018 03:01 PM. CLINICAL HISTORY: Falls, elbow and back injuries. COMPARISONS: None. TECHNIQUE: 2 views. Examination is limited by osteopenia, cross-table lateral technique and underpenetration. FINDINGS: Alignment: No gross listhesis or scoliosis. Bones: The bones are qualitatively osteopenic; this limits evaluation for underlying fractures or masses. AP view demonstrates advanced degenerative changes of the lower lumbar spine with suggestion of partial lumbarization of S1. The lowest lumbar appearing vertebral body on the lateral radiograph is labeled L5 for counting purposes. The lateral view of the L3 vertebral body questions a partial compression fracture which is not definitely demonstrated on the AP view. Disks: There is multilevel endplate spurring with mostly preserved joint spaces as seen. Facets: Facet joints are not well seen. Sacroiliac Joints: Unremarkable. Soft Tissues: Extensive calcifications of the abdominal aorta. IMPRESSION: Limited radiograph with atypical appearance of the L3 vertebral body laterally. Otherwise, no definite fracture or listhesis detected. RADIA
--- NOTE | 2018-08-27 15:20 | XRAY Report ---
Reason: falls, elbow inj and back inj Procedure Date: 08/27/2018 Accession Number: [id number] / [id number] Procedure: XR - Elbow 3 View BILAT CPT Code: FULL RESULT: EXAM: 1. RIGHT ELBOW RADIOGRAPHY 2. LEFT ELBOW RADIOGRAPHY EXAM DATE: 08/27/2018 03:00 PM. CLINICAL HISTORY: Falls, elbow and back injuries. COMPARISON: None. TECHNIQUE: 3 views each elbow. FINDINGS: Right: Bones: Normal. No fractures or bone lesions. Joints: Suboptimal lateral positioning which limits evaluation for joint effusion or subluxation. Neither is seen. Soft Tissues: Normal. No soft tissue swelling. Left: Bones: Normal. No fractures or bone lesions. Joints: Normal. No effusion. No subluxation. Soft Tissues: Normal. No soft tissue swelling. IMPRESSION: Mildly limited exam with no definite fracture or dislocation. RADIA
[2018-08-27] MEDS ORDERED: HYDROcod/ACETAM 5/325 MG TABLET PO STA (15:27)
[2018-08-27 19:48] VITALS: BP 132/85
== END 2018-08-27 20:10 | disposition home or self-care (01) ==
LOC: EDUNIT# → ED 13:36
DX: E86.0 Dehydration (principal); S32.030A Wedge compression fracture of third lumbar vertebra, initial encounter for closed fracture; S50.02XA Contusion of left elbow, initial encounter; S50.01XA Contusion of right elbow, initial encounter; W18.30XA Fall on same level, unspecified, initial encounter; Z91.81 History of falling; Y92.009 Unspecified place in unspecified non-institutional (private) residence as the place of occurrence of the external cause; G20 Parkinson's disease; F02.80 Dementia in other diseases classified elsewhere, unspecified severity, without behavioral disturbance, psychotic disturbance, mood disturbance, and anxiety; I10 Essential (primary) hypertension; Z87.891 Personal history of nicotine dependence
CPT/HCPCS: 36415; 72100; 73080; 80053; 81001; 83605; 83690; 85025; 87040; 96360; 96361; 99283; 99284; A9270; J7120; 81003; 87086

== ENCOUNTER 2018-08-29 09:38 | Emergency (ER) | payer MEDICARE, BC ==
[2018-08-29] MEDS ORDERED: BUFFERED LIDOCAINE 10 ML SYRINGE SUBQ STA (10:06)
--- NOTE | 2018-08-29 11:14 | ED Physician Documentation ---
History of Present Illness - Stated complaint Stated Complaint: FALL/FACE LAC - Chief complaint Chief Complaint: Laceration - History obtained from History obtained from: Patient, Family - History of Present Illness Timing: Today - Additonal information Additional information: 78-year-old male with advanced dementia and Parkinson's disease which is recently been diagnosed and treated has gotten out of bed this morning before his Parkinson's medication were fully effective and he has fallen against a side table lacerating his left cheek. Patient has been in the to the emergency department for IV hydration 2 days ago and since has done well. His partner indicates that he has been giving him 1- 1/2 times the dose of Parkinson's medication which seems to have made a dramatic improvement. Review of Systems Constitutional: denies: Fever, Chills Eyes: denies: Decreased vision Ears: denies: Ear pain Nose: denies: Rhinorrhea / runny nose, Congestion Respiratory: denies: Cough GI: denies: Nausea, Vomiting PD PAST MEDICAL HISTORY - Past Medical History Past Medical History: Yes Cardiovascular: Hypertension, High cholesterol Respiratory: None Neuro: Dementia Endocrine/Autoimmune: None GI: None : Incontinence Psych: Depression Musculoskeletal: None Derm: None - Past Surgical History Past Surgical History: Yes Ortho: Other - Present Medications Home Medications: Ambulatory Orders Medication Instructions Recorded Confirmed Atorvastatin Calcium 20 mg PO DAILY 07/22/18 08/29/18 Citalopram Hydrobromide 20 mg PO DAILY 07/22/18 08/29/18 [Citalopram HBr] Cyanocobalamin (Vitamin B-12) 1,000 mcg PO DAILY 07/22/18 08/29/18 [Vitamin B-12] clonazePAM [KlonoPIN] 0.25 - 0.5 mg PO Q8H PRN 07/22/18 08/29/18 Carbidopa/Levodopa 1 each PO QID #90 tablet 07/23/18 08/29/18 [Carbidopa-Levodopa 25-100 Tab] Hydrocodone/Acetaminophen 1 - 2 each PO Q6H PRN #30 tablet 08/27/18 08/29/18 [Hydrocodon-Acetaminophen 5-325] - Allergies Allergies/Adverse Reactions: Allergies Allergy/AdvReac Type Severity Reaction Status Date / Time Sulfa (Sulfonamide Allergy Unknown Verified 08/29/18 09:54 Antibiotics) - Social History Does the pt smoke?: Yes Smoking Status: Current every day smoker Does the pt drink ETOH?: No Does the pt have substance abuse?: No - Immunizations Immunizations are current?: Yes PD ED PE NORMAL - Vitals Vital signs reviewed: Yes (hypertension ) - General General: No acute distress, Well developed/nourished - HEENT HEENT: PERRL, EOMI, Other (There is a 3cm laceration to the left cheek that penetrates the dermis entirely but does not involve deeper structures. ) - Neck Neck: Supple, no meningeal sign, No bony TTP - Respiratory Respiratory: No respiratory distress - Derm Derm: Normal color, Warm and dry, No rash - Extremities Extremities: No deformity, No edema - Neuro Neuro: clinical physician assistant 2-12 intact, No motor deficit, No sensory deficit, Normal speech Eye Opening: Spontaneous Motor: Obeys Commands Verbal: Confused GCS Score: 14 - Psych Psych: Normal mood, Normal affect Results - Vitals Vitals: Vital Signs - 24 hr 08/29/18 09:50 Temperature 36.7 C Heart Rate 82 Respiratory 14 Rate Blood Pressure 143/77 H O2 Saturation 99 Oxygen O2 Source Room air Procedures - Laceration (location) left cheek Length in cm: 3 Wound type: Linear, Clean Neurovascular status: Sensory intact, Motor intact, Vascular intact Anesthesia: Lidocaine 1%, With bicarb Wound Preparation: Hibiclens, Irrigated copiously NS, Wound explored, To the base Skin layer closure: Nylon, Interrupted, Size #-0 - enter number ([phone]) Other: Patient tolerated well, No complications, Neurovascular intact, Dressing applied, Tetanus UTD PD MEDICAL DECISION MAKING - ED course Complexity details: reviewed results, re-evaluated patient, considered differential, d/w patient, d/w family ED course: 78-year-old male with advanced dementia and a laceration to his left cheek appears hydrated today and his cheek is sutured. He does appear to be acting normally according to his partner and he is certainly interactive here. CT scan of the head was not obtained. Departure - Departure Disposition: 01 Home, Self Care Clinical Impression: Laceration of cheek, left Qualifiers: Encounter type: initial encounter Qualified Code(s): S01.412A - Laceration without foreign body of left cheek and temporomandibular area, initial encounter Condition: Stable Instructions: ED Laceration Facial Sutr Tape Follow-Up: [facility] [Provider Group] Comments: sutures should be removed in 5-7 days
[2018-08-29 11:22] VITALS: BP 183/79
== END 2018-08-29 11:30 | disposition home or self-care (01) ==
LOC: ED 09:38
DX: S01.412A Laceration without foreign body of left cheek and temporomandibular area, initial encounter (principal); W01.190A Fall on same level from slipping, tripping and stumbling with subsequent striking against furniture, initial encounter; Y92.009 Unspecified place in unspecified non-institutional (private) residence as the place of occurrence of the external cause; G20 Parkinson's disease; F02.80 Dementia in other diseases classified elsewhere, unspecified severity, without behavioral disturbance, psychotic disturbance, mood disturbance, and anxiety; I10 Essential (primary) hypertension; F17.200 Nicotine dependence, unspecified, uncomplicated
CPT/HCPCS: 12013; 99282; 99283

== ENCOUNTER 2019-03-21 15:23 | Emergency (ER) | payer MEDICARE, BC ==
--- NOTE | 2019-03-21 15:52 | ED Physician Documentation ---
PD HPI DYSPNEA - Stated complaint Stated Complaint: SOA,WEAKNESS - Chief complaint Chief Complaint: Resp - History obtained from History obtained from: Caregiver - History of Present Illness Timing - onset: Today Inciting event(s): FB / choking - Additional information Additional information: This is a 78-year-old man who presents by private vehicle. There is a caregiver in the room with him who said she tried to give him his pills this morning and he seemed to choke on them and has been getting progressively more short of breath and unresponsive. She does not know any other history and says she saw him yesterday and he seemed to be fine. His significant other is also here getting checked in to be seen as a patient. Uncertain whether he has had fevers. Review of Systems Unable to obtain: Unresponsive, AMS PD PAST MEDICAL HISTORY - Past Medical History Cardiovascular: Hypertension, High cholesterol Respiratory: None Neuro: Dementia Endocrine/Autoimmune: None GI: None : Incontinence Psych: Depression Musculoskeletal: None Derm: None - Past Surgical History Past Surgical History: Yes Ortho: Other - Present Medications Home Medications: Ambulatory Orders Medication Instructions Recorded Confirmed Atorvastatin Calcium 20 mg PO DAILY 07/22/18 08/29/18 Citalopram Hydrobromide 20 mg PO DAILY 07/22/18 08/29/18 [Citalopram HBr] Cyanocobalamin (Vitamin B-12) 1,000 mcg PO DAILY 07/22/18 08/29/18 [Vitamin B-12] clonazePAM [KlonoPIN] 0.25 - 0.5 mg PO Q8H PRN 07/22/18 08/29/18 Carbidopa/Levodopa 1 each PO QID #90 tablet 07/23/18 08/29/18 [Carbidopa-Levodopa 25-100 Tab] Hydrocodone/Acetaminophen 1 - 2 each PO Q6H PRN #30 tablet 08/27/18 08/29/18 [Hydrocodon-Acetaminophen 5-325] - Allergies Allergies/Adverse Reactions: Allergies Allergy/AdvReac Type Severity Reaction Status Date / Time Sulfa (Sulfonamide Allergy Unknown Verified 03/21/19 15:28 Antibiotics) - Social History Does the pt smoke?: Yes Smoking Status: Current every day smoker Does the pt drink ETOH?: No Does the pt have substance abuse?: No - Immunizations Immunizations are current?: Yes PD ED PE NORMAL - Vitals Vital signs reviewed: Yes - General General: Other (Patient Is sitting with his eyes open not blinking with rapid respirations and not responding.) - Cardiac Cardiac: No murmur, Strong equal pulses, Other (Tachycardic) - Respiratory Respiratory: Other (Breath sounds you can hear gurgling in the back of his throat which obscures any respiratory sounds and he will not follow commands to take a deep breath.) - Abdomen Abdomen: Soft - Derm Derm: Normal color, Warm and dry Results - Vitals Vitals: Vital Signs - 24 hr 03/21/19 03/21/19 03/21/19 15:28 15:34 15:59 Temperature 37.7 C H Heart Rate 87 155 H 115 H Respiratory 42 H 41 H 41 H Rate Blood Pressure 139/119 H 114/89 H 114/76 O2 Saturation 96 82 L 100 03/21/19 03/21/19 03/21/19 16:18 16:29 16:30 Temperature Heart Rate 145 H 144 H 137 H Respiratory 44 H 16 Rate Blood Pressure 189/150 H 107/63 O2 Saturation 100 100 03/21/19 03/21/19 03/21/19 17:00 17:30 18:00 Temperature 37.9 C H Heart Rate 134 H 130 H 130 H Respiratory 16 16 16 Rate Blood Pressure 107/63 135/66 H 90/60 O2 Saturation 100 100 92 03/21/19 03/21/19 03/21/19 18:07 18:30 19:00 Temperature 38.4 C H 38.4 C H Heart Rate 129 H 136 H 125 H Respiratory 16 16 16 Rate Blood Pressure 90/66 98/59 L 98/59 L O2 Saturation 100 92 95 03/21/19 03/21/19 19:30 20:30 Temperature 38.1 C H 37.9 C H Heart Rate 125 H 127 H Respiratory 18 20 Rate Blood Pressure 95/62 108/54 L O2 Saturation 99 98 Oxygen O2 Source Mechanical ventilator - EKG (time done) 1656 Rate: Tachy Rhythm: Sinus tachycardia - Labs Labs: Microbiology 03/21/19 15:52 Blood Culture - Preliminary Blood Laboratory Tests 03/21/19 03/21/19 03/21/19 15:52 15:52 15:52 WBC 11.5 H RBC 5.22 Hgb 14.0 Hct 46.6 MCV 89.3 MCH 26.8 L MCHC 30.0 L RDW 14.5 Plt Count 324 MPV 10.0 Neut # (Auto) Not Reportable Lymph # (Auto) Not Reportable [place] # (Auto) Not Reportable Eos # (Auto) Not Reportable Baso # (Auto) Not Reportable Absolute Nucleated RBC Not Reportable Total Counted 100 Band Neuts % (Manual) 7 Abnorm Lymph % (Manual) 0 Nucleated RBC % Not Reportable Neutrophils # (Manual) 10.5 H Lymphocytes # (Manual) 0.8 L Monocytes # (Manual) 0.2 Eosinophils # (Manual) 0.0 Basophils # (Manual) 0.0 Differential Comment MANUAL DIFFERENTIAL Manual Slide Review Indicated WBC Morphology NORMAL APPEARANCE Platelet Estimate NORMAL (130-450,000) Platelet Morphology NORMAL APPEARANCE RBC Morph Micro Appear 1+ POLYCHROMASIA Bld Gas Analysis Time Sample Site ABG pH ABG pCO2 ABG pO2 ABG HCO3 ABG Total CO2 ABG O2 Saturation ABG Base Excess Delta Test Respiration Rate O2 Delivery Device Vent Mode FiO2 Tidal Volume PEEP Pressure Support Vent Sodium 146 H Potassium 4.0 Chloride 104 Carbon Dioxide 22 Anion Gap 20.0 H BUN 35 H Creatinine 1.7 H Estimated GFR (MDRD) 39 L Glucose 192 H Lactic Acid Calcium 9.0 Total Bilirubin 1.1 H AST 42 ALT 10 Alkaline Phosphatase 68 Troponin I High Sens 49.0 H* B-Natriuretic Peptide Total Protein 7.7 Albumin 3.3 Globulin 4.4 H Albumin/Globulin Ratio 0.8 L Lipase 33 Urine Color Urine Clarity Urine pH Ur Specific [place] Urine Protein Urine Glucose (UA) Urine Ketones Urine Occult Blood Urine Nitrite Urine Bilirubin Urine Urobilinogen Ur Leukocyte Esterase Urine RBC Urine WBC Urine WBC Clumps Ur Squamous Epith Cells Urine Bacteria Ur Microscopic Review Urine Culture Comments Influenza A (Rapid) Influenza B (Rapid) 03/21/19 03/21/19 03/21/19 15:52 16:58 17:10 WBC RBC Hgb Hct MCV MCH MCHC RDW Plt Count MPV Neut # (Auto) Lymph # (Auto) [place] # (Auto) Eos # (Auto) Baso # (Auto) Absolute Nucleated RBC Total Counted Band Neuts % (Manual) Abnorm Lymph % (Manual) Nucleated RBC % Neutrophils # (Manual) Lymphocytes # (Manual) Monocytes # (Manual) Eosinophils # (Manual) Basophils # (Manual) Differential Comment Manual Slide Review WBC Morphology Platelet Estimate Platelet Morphology RBC Morph Micro Appear Bld Gas Analysis Time 1706 Sample Site RIGHT RADIAL ABG pH 7.21 L ABG pCO2 51 H ABG pO2 137 H ABG HCO3 20.2 L ABG Total CO2 21.8 ABG O2 Saturation 98 ABG Base Excess -7.7 L Delta Test POSITIVE Respiration Rate 16 O2 Delivery Device VENTILATOR Vent Mode SIMV FiO2 100.00 Tidal Volume 500 PEEP 5 Pressure Support Vent 10 Sodium Potassium Chloride Carbon Dioxide Anion Gap BUN Creatinine Estimated GFR (MDRD) Glucose Lactic Acid Calcium Total Bilirubin AST ALT Alkaline Phosphatase Troponin I High Sens B-Natriuretic Peptide 71 Total Protein Albumin Globulin Albumin/Globulin Ratio Lipase Urine Color Urine Clarity Urine pH Ur Specific [place] Urine Protein Urine Glucose (UA) Urine Ketones Urine Occult Blood Urine Nitrite Urine Bilirubin Urine Urobilinogen Ur Leukocyte Esterase Urine RBC Urine WBC Urine WBC Clumps Ur Squamous Epith Cells Urine Bacteria Ur Microscopic Review Urine Culture Comments Influenza A (Rapid) Negative Influenza B (Rapid) Negative 03/21/19 03/21/19 03/21/19 17:50 18:30 19:03 WBC RBC Hgb Hct MCV MCH MCHC RDW Plt Count MPV Neut # (Auto) Lymph # (Auto) [place] # (Auto) Eos # (Auto) Baso # (Auto) Absolute Nucleated RBC Total Counted Band Neuts % (Manual) Abnorm Lymph % (Manual) Nucleated RBC % Neutrophils # (Manual) Lymphocytes # (Manual) Monocytes # (Manual) Eosinophils # (Manual) Basophils # (Manual) Differential Comment Manual Slide Review WBC Morphology Platelet Estimate Platelet Morphology RBC Morph Micro Appear Bld Gas Analysis Time 1910 Sample Site RIGHT RADIAL ABG pH 7.29 L ABG pCO2 49 H ABG pO2 80 ABG HCO3 22.9 ABG Total CO2 24.4 ABG O2 Saturation 94 ABG Base Excess -4.0 L Delta Test POSITIVE Respiration Rate 16 O2 Delivery Device VENTILATOR Vent Mode SIMV FiO2 1.00 Tidal Volume 600 PEEP Pressure Support Vent 5 Sodium Potassium Chloride Carbon Dioxide Anion Gap BUN Creatinine Estimated GFR (MDRD) Glucose Lactic Acid 2.4 H Calcium Total Bilirubin AST ALT Alkaline Phosphatase Troponin I High Sens B-Natriuretic Peptide Total Protein Albumin Globulin Albumin/Globulin Ratio Lipase Urine Color DARK YELLOW Urine Clarity CLOUDY Urine pH 5.5 Ur Specific [place] >=1.030 H Urine Protein 100 H Urine Glucose (UA) NEGATIVE Urine Ketones NEGATIVE Urine Occult Blood SMALL H Urine Nitrite POSITIVE H Urine Bilirubin NEGATIVE Urine Urobilinogen 1 (NORMAL) Ur Leukocyte Esterase MODERATE H Urine RBC 11-25 H Urine WBC >25 H Urine WBC Clumps PRESENT Ur Squamous Epith Cells NONE SEEN Urine Bacteria Many H Ur Microscopic Review INDICATED Urine Culture Comments INDICATED Influenza A (Rapid) Influenza B (Rapid) 03/21/19 19:20 WBC RBC Hgb Hct MCV MCH MCHC RDW Plt Count MPV Neut # (Auto) Lymph # (Auto) [place] # (Auto) Eos # (Auto) Baso # (Auto) Absolute Nucleated RBC Total Counted Band Neuts % (Manual) Abnorm Lymph % (Manual) Nucleated RBC % Neutrophils # (Manual) Lymphocytes # (Manual) Monocytes # (Manual) Eosinophils # (Manual) Basophils # (Manual) Differential Comment Manual Slide Review WBC Morphology Platelet Estimate Platelet Morphology RBC Morph Micro Appear Bld Gas Analysis Time Sample Site ABG pH ABG pCO2 ABG pO2 ABG HCO3 ABG Total CO2 ABG O2 Saturation ABG Base Excess Delta Test Respiration Rate O2 Delivery Device Vent Mode FiO2 Tidal Volume PEEP Pressure Support Vent Sodium Potassium Chloride Carbon Dioxide Anion Gap BUN Creatinine Estimated GFR (MDRD) Glucose Lactic Acid Calcium Total Bilirubin AST ALT Alkaline Phosphatase Troponin I High Sens 48.9 H* B-Natriuretic Peptide Total Protein Albumin Globulin Albumin/Globulin Ratio Lipase Urine Color Urine Clarity Urine pH Ur Specific [place] Urine Protein Urine Glucose (UA) Urine Ketones Urine Occult Blood Urine Nitrite Urine Bilirubin Urine Urobilinogen Ur Leukocyte Esterase Urine RBC Urine WBC Urine WBC Clumps Ur Squamous Epith Cells Urine Bacteria Ur Microscopic Review Urine Culture Comments Influenza A (Rapid) Influenza B (Rapid) - Rads (name of study) CXR Radiology: EMP read indepedently (ETT positioned high; NG coiled in esophagus; bibasilar infiltrates), EMP read contemporaneously post central line CXR Radiology: EMP read indepedently (No pneumothorax. The NG tube is noted to be in the right thorax and tracking alongside the endotracheal tube presumably in the right mainstem bronchus.), EMP read contemporaneously CT head Radiology: See rad report (Radiologist report was not available at time of transfer.) Procedures - Intubation Provider: Emergency physician Medications: Etomidate, Succinylcholine Blade: Glidescope Tube: Size-enter number (7.5) Route: Oral Confirmation: Direct visualization, Bilateral breath sounds, No abdominal breath sound, End tidal CO2, Pulse ox, Chest xray Complications: No compications - Central Line Central Line Preparation: Unable to obtain consent, Ultrasound used, Sterile prep and drape Central line location: Right IJ Central line type: Triple lumen Central line aftercare: Chlorhexidine disc placed, Secured, No complications PD MEDICAL DECISION MAKING - ED course Complexity details: d/w [employer] consultant ED course: The patient required emergent intubation. Could find no records that he would want to be a DNR. He was successfully intubated. The ET tube was high and was pushed forward after the chest x-ray was obtained. He does seem to have some bibasilar infiltrates. His BNP is normal. Troponin was a little bit elevated at 49.0. CBC is normal. He is placed on a propofol drip also given some fentanyl and vecuronium. They only have one IV so plan to do central line access and admit to ICU for respiratory failure. Patient had an EKG repeated because the first 1 had so much artifact and there is ST elevation in leads III and aVF. I ran this by our hospitalist who said that the patient was too sick to be admitted here and we activated the STEMI protocol. When I spoke to the [facility] physician Dr. Askew he evaluated the EKG but requested that I talk to cardiology because it was doubtful that they would cath this patient in the condition that he is in. I did speak with the on-call STEMI segmental paving supervisor who indicated that they would not take this patient to the [facility]. In the meantime we got a urinalysis and a repeat temperatures rectally showed 103.2. Patient was given IV Tylenol 1 g. The patient's remained tachycardic he will be given a full 2-1/2 L of IV fluids I have ordered Rocephin IV lactate and blood cultures are pending. Repeat ABG is pending. Central line was placed by me using ultrasound guidance chest x-ray shows no pneumothorax but the OG had been subsequently passed and it looks like it is in the right mainstem bronchus so that will be removed. I called [facility] back they do not have any ICU beds so I have talked to Kathi Garrison and they are to get me the emergency specialist to see about accepting this patient in transfer. Patient remains tachycardic after 2-1/2 L of fluids. Of ordered Levophed and his blood pressure is dropping into the upper 80s his map is below 60. Repeat ABG showed pH of 7.287 with PCO2 still of 49 so we have increased his rate to 18. PaO2 is improved after the OG was removed from the mainstem bronchus. I have spoken to the emergency specialist at [facility] she has agreed to accept the patient in transfer but requested that I discussed with cardiology as well and just sent the EKG for review by Dr. Merida. Dr. Wilson did call me back said that he would not take this patient to the [facility] but he would heparinize him. Also administer aspirin but we do not have a functional OG tube at this time. We will look with a glide scope to see if we can pass the NG. I am going to send him for a CT scan to make sure that there is no head bleed before heparinizing him given his mental status on his arrival. Waiting for bed placement at [facility]. CT report was not available at time of transfer, so heparin was not initiated prior to transfer. Also, multiple attempts at NG/OG placement were unsuccessful even using video assistance with the Glidscope. The NG tube repeatedly coiled or entered the trachea and could not be routed down the esophagus. Patient was transfered by ground with the flight crew who was grounded due to weather. - Critical Care Time(min): 120 Time Includes: Direct patient care, Review records, Reassess patient, Document care, Coordinate care, Medical consult Data interpretation: Labs, Pulse ox, ABG, CXR, Prior EKG Procedures included in critical care time: Ventilator mgmt Procedures excluded from critical care time: Central IV, Intubation, EKG Departure - Departure Disposition: 02 Transfer Acute Care Hosp Clinical Impression: Sepsis Qualifiers: Sepsis type: sepsis due to unspecified organism Sepsis acute organ dysfunction status: with acute organ dysfunction Severe sepsis acute organ dysfunction type: acute respiratory failure Acute respiratory failure type: with hypercapnia Severe sepsis shock status: with septic shock Qualified Code(s): A41.9 - Sepsis, unspecified organism; R65.21 - Severe sepsis with septic shock; J96.02 - Acute respiratory failure with hypercapnia UTI (urinary tract infection) Qualifiers: Urinary tract infection type: site unspecified Hematuria presence: without hematuria Qualified Code(s): N39.0 - Urinary tract infection, site not specified Respiratory failure with hypoxia and hypercapnia Qualifiers: Chronicity: acute Qualified Code(s): J96.01 - Acute respiratory failure with hypoxia; J96.02 - Acute respiratory failure with hypercapnia STEMI (ST elevation myocardial infarction) Qualifiers: Involved coronary artery: other inferior wall coronary artery Qualified Code(s): I21.19 - ST elevation (STEMI) myocardial infarction involving other coronary artery of inferior wall Discharge Date/Time: 03/21/19 20:58
[2019-03-21] MEDS ORDERED: ETOMIDATE 40 MG/20 ML VIAL IVP ONE (16:00)
[2019-03-21] MEDS ORDERED: SUCCINYLCHOLINE 200 MG/10 ML VIAL ONE (16:01)
[2019-03-21] MEDS ORDERED: SUCCINYLCHOLINE 200 MG/10 ML VIAL IVP STA ×2 (16:02→16:13)
[2019-03-21] MEDS ORDERED: ETOMIDATE 40 MG/20 ML VIAL IVP STA ×2 (16:04→16:13)
[2019-03-21 16:07] LABS: BASOPHILS % (AUTO) 0.3 %; EOSINOPHILS % (AUTO) 0.4 %; LYMPHOCYTES % (AUTO) 11.3 %; MEAN CORPUSCULAR HEMOGLOBIN 26.8 pg (27.0-31.0); MEAN CORPUSCULAR VOLUME 89.3 fL (80.0-94.0); MONOCYTES % (AUTO) 5.7 %; NEUTROPHILS % (AUTO) 81.7 %; PLT - PLATELET COUNT 324 10^3/uL (130-450); RED BLOOD COUNT 5.22 10^6/uL (4.70-6.10); RED CELL DISTRIBUTION WIDTH 14.5 % (12.0-15.0); WHITE BLOOD COUNT 11.5 x10^3/uL (4.8-10.8)
[2019-03-21] MEDS ORDERED: SODIUM CHLORIDE 0.9% 1,000 ML IV ONE (16:13)
[2019-03-21] MEDS ORDERED: PROPOFOL 1000 MG/100 ML 100 ML IV STA (16:14)
[2019-03-21 16:15] LABS: ABNORMAL LYMPHS % (MANUAL) 0 %
[2019-03-21 16:26] LABS: BAND NEUTROPHILS % (MANUAL) 7 %; DIFFERENTIAL COMMENT MANUAL DIFFERENTIAL; LYMPHOCYTES # (MANUAL) 0.8 10^3/uL (1.5-3.5); LYMPHOCYTES % (MANUAL) 7 %; MONOCYTES # (MANUAL) 0.2 10^3/uL (0.0-1.0); PLATELET ESTIMATE, MANUAL NORMAL (130-450,000) (NORMAL); PLATELET MORPHOLOGY NORMAL APPEARANCE (NORMAL); RBC MORPHOLOGY (MULTIPLE) 1+ POLYCHROMASIA (NORMAL)
[2019-03-21 16:31] LABS: ALBUMIN 3.3 g/dL (3.2-5.5); ALBUMIN/GLOBULIN RATIO 0.8 (1.0-2.2); BILIRUBIN,TOTAL 1.1 mg/dL (0.2-1.0); CREATININE 1.7 mg/dL (0.6-1.2); TOTAL PROTEIN 7.7 g/dL (6.7-8.2)
[2019-03-21] MEDS ORDERED: VECURONIUM 10 MG VIAL IVP STA (16:33)
[2019-03-21] MEDS ORDERED: fentaNYL 100 MCG/2 ML VIAL IVP STA (16:40)
--- NOTE | 2019-03-21 16:55 | XRAY Report ---
Reason: ET TUBE PLACEMENT Procedure Date: 03/21/2019 Accession Number: [id number] / [id number] Procedure: XR - Chest for Line Placement CPT Code: Final Report FULL RESULT: EXAM: CHEST RADIOGRAPHY EXAM DATE: 03/21/2019 04:32 PM. CLINICAL HISTORY: ET TUBE PLACEMENT. COMPARISON: CHEST 1 VIEW 07/22/2018 2:57 PM. TECHNIQUE: 1 view. FINDINGS: Lungs/Pleura: No focal opacities evident. No pleural effusion. No pneumothorax. Mediastinum: Within exam limitations, the cardiomediastinal contour is normal. Other: There is an ET tube positioned 8.7 cm above the robbi. Skin fold projects over the right upper lobe. There is no G-tube is tracks in the stomach in a field of view. IMPRESSION: 1. The ET tube is positioned 8.7 cm above the robbi. 2. There is an NG tube with extraction of the stomach and off the field of view. 3. No new focal consolidation. RADIA
[2019-03-21 17:45] LABS: ABG BASE EXCESS -7.7 mmol/L (-2.0-3.0); ABG HCO3 20.2 mmol/L (22.0-26.0); ABG OXYGEN SATURATION 98 % (94-98); ABG PCO2 51 mmHg (34-45); ABG PH 7.21 (7.35-7.45); ABG PO2 137 mmHg (80-100); ABG TCO2 21.8 MMOL/L (21.0-29.0); ALLEN TEST POSITIVE
[2019-03-21 17:59] LABS: BILIRUBIN,URINE NEGATIVE (NEGATIVE); GLUCOSE, URINE (UA) NEGATIVE (NEGATIVE); KETONES,URINE (UA) NEGATIVE (NEGATIVE); LEUKOCYTE ESTERASE, URINE MODERATE (NEGATIVE); NITRITE,URINE POSITIVE (NEGATIVE); OCCULT BLOOD,URINE SMALL (NEGATIVE); PH,URINE 5.5 PH (5.0-7.5); PROTEIN,URINE 100 mg/dL (NEGATIVE); UROBILINOGEN,URINE 1 (NORMAL) E.U./dL (NORMAL)
[2019-03-21 18:05] LABS: CLARITY,URINE CLOUDY (CLEAR)
[2019-03-21 18:06] LABS: BACTERIA,URINE Many /HPF (None Seen); SQUAMOUS EPITHELIAL CELL,UR NONE SEEN (<= Few); WBC CLUMPS,URINE PRESENT
[2019-03-21] MEDS ORDERED: ACETAMINOPHEN 1,000 MG/100 ML 100 ML IV STA (18:22)
[2019-03-21] MEDS ORDERED: SODIUM CHLORIDE 0.9% 500 ML IV ONE (18:23)
[2019-03-21] MEDS ORDERED: cefTRIAXone 2 GM in SODIUM CHLORIDE 0.9% MINIBAG 100 ML IV STA (18:24)
--- NOTE | 2019-03-21 18:50 | XRAY Report ---
Reason: OG TUBE AND CENTRAL LINE PLACEMENT Procedure Date: 03/21/2019 Accession Number: [id number] / [id number] Procedure: XR - Chest for Line Placement CPT Code: Addended Final Report FULL RESULT: EXAM: CHEST RADIOGRAPHY EXAM DATE: 03/21/2019 06:28 PM. CLINICAL HISTORY: OG TUBE AND CENTRAL LINE PLACEMENT. COMPARISON: CHEST 1 VIEW 03/21/2019 4:09 PM. TECHNIQUE: 1 view. FINDINGS: Lungs/Pleura: Irregular opacities in lung bases with no foot new focal consolidation. No pneumothorax. Mediastinum: Within exam limitations, the cardiomediastinal contour is normal. Other: The ET tube is positioned 5.4 cm above the robbi. There is a right IJ approach central venous catheter position with its tip in the lower SVC. IMPRESSION: 1. The ET tube is positioned 5.4 cm above the robbi. 2. New right IJ approach central venous catheter position with its tip in the lower SVC. 3. No pneumothorax. RADIA ADDENDUM: 03/21/19 19:47 On further review the images, the previously placed NG tube has been replaced and is now positioned with its tip in the right lower lobe. This has subsequently been removed by the ordering physician.
[2019-03-21 19:14] LABS: ABG HCO3 22.9 mmol/L (22.0-26.0); ABG PCO2 49 mmHg (34-45); ABG PH 7.29 (7.35-7.45); ABG PO2 80 mmHg (80-100); ABG TCO2 24.4 MMOL/L (21.0-29.0)
[2019-03-21 19:15] LABS: ABG OXYGEN SATURATION 94 % (94-98); ALLEN TEST POSITIVE
[2019-03-21] MEDS ORDERED: HEPARIN 25000UNITS/500ML (D5W) 25,000 UNIT/500 ML BAG IV STA (19:37)
[2019-03-21] MEDS ORDERED: HEPARIN 5,000 UNIT/ML VIAL IVP STA (19:37)
[2019-03-21 20:32] VITALS: BP 108/54
[2019-03-21] MEDS ORDERED: PROPOFOL 1000 MG/100 ML 100 ML IV ONE (20:43)
--- NOTE | 2019-03-21 20:46 | CT Report ---
Reason: altered mental status Procedure Date: 03/21/2019 Accession Number: [id number] / [id number] Procedure: CT - HEAD WO CPT Code: Final Report FULL RESULT: EXAM: CT HEAD EXAM DATE: 03/21/2019 08:26 PM. CLINICAL HISTORY: Altered mental status. COMPARISON: HEAD W/O 07/22/2018 3:16 PM. TECHNIQUE: Multiaxial CT images were obtained from the foramen magnum to the vertex. Reformats: Sagittal and coronal. IV contrast: None. In accordance with CT protocol optimization, one or more of the following dose reduction techniques were utilized for this exam: automated exposure control, adjustment of mA and/or KV based on patient size, or use of iterative reconstructive technique. FINDINGS: Parenchyma: Diffuse cortical atrophy with parenchymal volume loss including prominent volume loss in the anteromedial temporal lobes, right greater than left, similar to prior study. No intraparenchymal hemorrhage. No evidence of mass, midline shift, or CT findings of infarction. Low attenuation in deep white matter consistent with chronic small vessel ischemic changes. No associated positive mass-effect. Nunez-white differentiation is distinct. Extraaxial Spaces: Extensive cortical atrophy with increased CSF prominence over the cerebral hemispheres bilaterally again seen. No extra-axial mass. No hemorrhage. No interval subdural or epidural collections identified. Ventricles: Ventriculomegaly not grossly disproportionate to the degree of parenchymal volume loss in both cerebral hemispheres. No hemorrhage. No gross interval change. Callosal angle greater than 110 degrees, not suggestive of NPH. Sinuses and Orbits: Imaged paranasal sinuses, orbits, and mastoids show no significant abnormality. Bones: No evidence of fracture or calvarial defect. Other: None. IMPRESSION: 1. Extensive cortical atrophy/brain parenchymal volume loss and ventriculomegaly not significantly changed. 2. No intracranial hemorrhage. No mass or abnormal positive mass-effect. No finding suggestive of acute/subacute stroke on noncontrast CT. 3. Exam otherwise as above. RADIA
== END 2019-03-21 20:58 | disposition short-term general hospital (02) ==
LOC: ED 15:23
DX: A41.9 Sepsis, unspecified organism (principal); R65.21 Severe sepsis with septic shock; J96.01 Acute respiratory failure with hypoxia; J96.02 Acute respiratory failure with hypercapnia; N39.0 Urinary tract infection, site not specified; I21.19 ST elevation (STEMI) myocardial infarction involving other coronary artery of inferior wall; I45.10 Unspecified right bundle-branch block; R00.0 Tachycardia, unspecified; I10 Essential (primary) hypertension; F03.90 Unspecified dementia, unspecified severity, without behavioral disturbance, psychotic disturbance, mood disturbance, and anxiety; F17.200 Nicotine dependence, unspecified, uncomplicated
CPT/HCPCS: 31500; 36415; 36556; 36600; 70450; 80053; 81001; 82803; 83605; 83690; 83880; 84484; 85025; 87040; 87077; 87086; 87181; 87275; 87276; 93005; 96361; 96365; 96375; 99285; 99291; 99292; J0131; J0330; 71045; 81003; 94770

== ENCOUNTER 2019-03-21 20:56 | Outpatient (CLI) | payer MEDICARE, BC | END 2019-03-21 20:57 | disposition short-term general hospital (02) | LOC: EMS 20:56 | PROVIDERS: ATTEND Surgery | DX: J96.90 Respiratory failure, unspecified, unspecified whether with hypoxia or hypercapnia (principal) | CPT/HCPCS: A0425; A0426 ==